=== PATIENT | female | born 1945 | race Caucasian/White ===

== ENCOUNTER 2018-01-30 08:46 | Outpatient (CLI) | payer OTHER ==
[~2018-01-30 08:46] MED LIST: ATENOLOL25 MG; CIPRO100 MG; CIPRO500 MG PO; FLAGYL375 MG; PREVACID30 MG; ZANTAC150 M3
== END 2018-01-30 13:20 | disposition home or self-care (01) ==
LOC: RX STUDY 08:46
DX: R13.10 Dysphagia, unspecified (principal)

== ENCOUNTER → 2018-02-01 | Emergency (ER) | payer OTHER ==
[~2018-02-01] VITALS: Ht 160 cm; Wt 70.8 kg
== END | disposition home or self-care (01) ==
LOC: ER 10:42
DX: K58.8 Other irritable bowel syndrome (principal)